=== PATIENT | male | born 1965 | race African-American/Black ===

== ENCOUNTER 2016-11-19 23:13 | Emergency (ER) | payer OTHER ==
[~2016-11-19 23:13] MED LIST: ANDROGEL5 GM TD; MEN'S DAILY FO1 EAC1 PO; NITRIC ACID1 ML MC; [UNRECOGNIZED DRUG - OTHER] MC
[2016-11-19 23:25] VITALS: BP 171/103
== END 2016-11-20 00:32 | disposition left against medical advice (07) ==
LOC: ER 23:13
DX: Z53.21 Procedure and treatment not carried out due to patient leaving prior to being seen by health care provider (principal)

== ENCOUNTER 2017-01-16 16:15 | Emergency (ER) | payer OTHER ==
[~2017-01-16] VITALS: Ht 182.9 cm; Wt 83.9 kg
--- NOTE | ~2017-01-16 | EKG ---
[place] [address] [facility] [place] [address] ELECTROCARDIOGRAM REPORT Name: PACO WHEELER [facility] [id number] Admission: 01/16/17 Attend Phys: Discharge: 01/16/17 Date of : 65 Report #: [id number] THIS REPORT FOR: //name// [facility] ED Test Date: 2017-01-16 Test Time: 16:48:16 Pat Name: PACO WHEELER Department: Room: Gender: M [employer] Helper: SANDRA : 1965 Requested By: Vadim Bean Order Number: [id number] MD: Zacarias Hurtado Measurements Intervals [place] Rate: 88 P: 72 ND: 140 QRS: 79 QRSD: 92 T: 81 QT: 351 QTc: 425 Interpretive Statements Sinus rhythm Probable left ventricular hypertrophy Baseline wander in lead(s) V2,V3,V4,V6 Compared to ECG 09/02/2014 00:02:56 No significant change was found Electronically Signed On 01-18-2017 8:40:57 CDT by Zacarias Hurtado [email or web address] <ELECTRONICALLY SIGNED> By: Zacarias Hurtado MD, [facility] 01/18/17 0840 [id number] Zacarias Hurtado MD, [facility] /EPI
[2017-01-16 17:21] LABS: ABSOLUTE NEUTROPHILS 7.2 thou/uL (1.4-8.2); BASOPHILS 0.8 % (0.0-2.0); EOSINOPHILS 0.8 % (0.0-3.0); HEMATOCRIT 38.3 % (42.0-52.0); HEMOGLOBIN 13.2 gm/dL (14.0-18.0); MCH 33.5 pg (26.0-34.0); MCHC 34.5 g/dL (28.0-37.0); MONOCYTES 6.1 % (1.0-8.0); POLYS 78.3 % (36.0-66.0); RBC 3.94 mil/uL (4.50-6.00); RDW 14.8 % (10.5-14.5); WBC 9.2 thou/uL (4.0-11.0)
[2017-01-16 17:23] LABS: MANUAL DIFF NO
[2017-01-16 17:42] LABS: ANION GAP 14 mmol/L (7-16); BUN 6 mg/dL (7-18); CALCIUM 8.6 mg/dL (8.5-10.1); CHLORIDE 102 mmol/L (98-107); CO2 26 mmol/L (21-32); CREATININE 0.9 mg/dL (0.7-1.3); GLUCOSE 88 mg/dL (74-106); POTASSIUM 3.6 mmol/L (3.5-5.1); SODIUM 142 mmol/L (136-145)
[2017-01-16 17:45] LABS: ALBUMIN 3.8 g/dL (3.4-5.0); ALKALINE PHOSPHATASE 139 U/L (46-116); SGOT 212 U/L (15-37); SGPT 153 U/L (30-65); TOTAL BILIRUBIN 0.7 mg/dL (<0.1-1.0); TOTAL PROTEIN 8.3 g/dL (6.4-8.2); TROPONIN-I < 0.04 ng/mL (<0.04-0.07)
[2017-01-16 17:51] LABS: PLATELET COUNT 87 thou/uL (150-400)
[2017-01-16 17:56] LABS: AMP/METHAMP Negative (Negative); BARBITURATES Negative (Negative); BENZODIAZEPINES Negative (Negative); COCAINE Negative (Negative); METHADONE Negative (Negative); OPIATES Negative (Negative); PCP Negative (Negative); THC Negative (Negative)
[2017-01-16 22:15] VITALS: BP 137/70
== END 2017-01-16 22:15 | disposition home or self-care (01) ==
LOC: ER 16:15
PROVIDERS: Physician Assistant
DX: S02.32XA Fracture of orbital floor, left side, initial encounter for closed fracture (principal); F10.120 Alcohol abuse with intoxication, uncomplicated; R74.0 Nonspecific elevation of levels of transaminase and lactic acid dehydrogenase [LDH]; F41.9 Anxiety disorder, unspecified; F31.9 Bipolar disorder, unspecified; Z85.07 Personal history of malignant neoplasm of pancreas; X58.XXXA Exposure to other specified factors, initial encounter; Y93.89 Activity, other specified; Y92.89 Other specified places as the place of occurrence of the external cause; Y99.8 Other external cause status